=== PATIENT | female | born 1960 | race African-American/Black ===

== ENCOUNTER 2019-03-01 10:41 | Emergency (ER) | payer SELFPAY ==
[~2019-03-01] VITALS: Ht 170.2 cm; Wt 92.1 kg
[2019-03-01 11:10] VITALS: BP 124/61
[2019-03-01] MEDS ORDERED: KETOROLAC TROMETH 60MG/2ML VIAL IM ONE (12:30)
== END 2019-03-01 14:05 | disposition home or self-care (01) ==
LOC: ER 10:45
DX: M25.562 Pain in left knee (principal); M25.561 Pain in right knee; M19.90 Unspecified osteoarthritis, unspecified site; I10 Essential (primary) hypertension
CPT/HCPCS: 73562; 96372; 99283; J1885

== ENCOUNTER 2020-11-08 12:09 | Emergency (ER) | payer SELFPAY ==
[~2020-11-08] VITALS: Ht 170.2 cm; Wt 72.1 kg
[2020-11-08 12:14] VITALS: BP 105/72
[2020-11-08] MEDS ORDERED: KETOROLAC TROMETH 60MG/2ML VIAL IM ONE (13:45)
== END 2020-11-08 14:49 | disposition home or self-care (01) ==
LOC: ER 12:09
DX: S63.92XA Sprain of unspecified part of left wrist and hand, initial encounter (principal); S83.8X1A Sprain of other specified parts of right knee, initial encounter; M17.11 Unilateral primary osteoarthritis, right knee; I10 Essential (primary) hypertension; W19.XXXA Unspecified fall, initial encounter; Y93.89 Activity, other specified; Y92.89 Other specified places as the place of occurrence of the external cause; Y99.8 Other external cause status
CPT/HCPCS: 73130; 73562; 96372; 99284; J1885

== ENCOUNTER 2022-05-16 14:23 | Emergency (ER) | payer BC, OTHER ==
[~2022-05-16] VITALS: Ht 170.2 cm; Wt 80.0 kg
[2022-05-16] MEDS ORDERED: ACETAMINOPHEN 500 MG TAB PO ONE (16:30)
[2022-05-16 16:52] VITALS: BP 117/72
[2022-05-16] MEDS ORDERED: IBUP800T27 PO (17:23)
[2022-05-16] MEDS ORDERED: METH750T22 PO (17:23)
== END 2022-05-16 17:43 | disposition home or self-care (01) ==
LOC: ER 14:23
DX: S16.1XXA Strain of muscle, fascia and tendon at neck level, initial encounter (principal); M50.30 Other cervical disc degeneration, unspecified cervical region; I10 Essential (primary) hypertension; Z79.1 Long term (current) use of non-steroidal anti-inflammatories (NSAID); Z79.899 Other long term (current) drug therapy; V43.62XA Car passenger injured in collision with other type car in traffic accident, initial encounter; Y93.89 Activity, other specified; Y92.410 Unspecified street and highway as the place of occurrence of the external cause; Y99.8 Other external cause status
CPT/HCPCS: 72040

== ENCOUNTER → 2023-11-26 | Emergency (ER) | payer OTHER, MEDICAID ==
[~2023-11-26] MED LIST: IBUP-1456 PO; METH-1182 PO
== END | disposition left against medical advice (07) ==
LOC: ER 13:37
DX: H53.8 Other visual disturbances (principal); Z53.21 Procedure and treatment not carried out due to patient leaving prior to being seen by health care provider

== ENCOUNTER 2024-10-17 16:04 | Inpatient (IN) | payer MEDICAID, OTHER ==
[~2024-10-17] VITALS: Ht 170.2 cm; Wt 99.0 kg
--- NOTE | 2024-10-17 16:24 | ED.PDOC ---
History of Present Illness HPI Comments 64-year-old female came to the ER stating that she has been having bilateral lower extremity edema for the past few days progressively getting worse. She does have a history of hypotension left knee brace for osteoarthritis. She continues to smoke cigarettes. She denies chest pain. She does have shortness a breath upon walking. Blood pressure on arrival was 141/93. She does take Norvasc she does not remember the water pill. Denies any other symptoms. Time Seen by MD: 16:08 Primary Care Provider: MAMMO Reviewed Notes: Nurses Notes, Medications, Allergies Allergies: Coded Allergies: NO KNOWN ALLERGIES (Unverified , 11/08/20) Home Meds Active Scripts Methocarbamol (Methocarbamol) 750 Mg Tab, 750 MG PO QHSP PRN, #20 TAB Prov:ROBYN NICHOLS 05/16/22 Ibuprofen (Ibuprofen) 800 Mg Tab, 1 TAB PO TID, #30 TAB Prov:ROBYN NICHOLS 05/16/22 Information Source: Patient Mode of Arrival: Ambulatory Severity: Moderate Timing: Days Duration: Since onset Past Medical History PAST MEDICAL HISTORY: Arthritis, HTN Surgical History: Denies all surgeries BOTTLE HOP History: No Pertinent BOTTLE HOP History Family History Family History: Reviewed,noncontributory to illness Social History Smoker: Cigarettes Alcohol: Denies ETOH Use Drugs: Denies Drug Use Lives In: Home Constitutional: denies: chills, diaphoresis, fatigue, fever, malaise, sweats, weakness, others EENTM: denies: blurred vision, double vision, ear bleeding, ear discharge, ear drainage, ear pain, ear ringing, eye pain, eye redness, hearing loss, mouth pain, mouth swelling, nasal discharge, nose bleeding, nose congestion, nose pain, photophobia, tearing, throat pain, throat swelling, voice changes, others Respiratory: denies: cough, hemoptysis, orthopnea, SOB at rest, shortness of breath, SOB with excertion, stridor, wheezing, others Cardiovascular: denies: chest pain, dizzy spells, diaphoresis, Dyspnea on exertion, edema, irregular heart beat, left arm pain, lightheadedness, palpitations, PND, syncope, others Gastrointestinal: denies: abdomen distended, abdominal pain, blood streaked bowels, constipated, diarrhea, dysphagia, difficulty swallowing, hematemesis, melena, nausea, poor appetite, poor fluid intake, rectal bleeding, rectal pain, vomiting, others Genitourinary: denies: abnormal vagina bleeding, burning, dyspareunia, dysuria, flank pain, frequency, hematuria, incontinence, pain, , vagina discharge, urgency, others Neurological: denies: dizziness, fainting, headache, left sided numbness, left sided weakness, numbness, paresthesia, pre-existing deficit, right sided numbness, right sided weakness, seizure, speech problems, tingling, tremors, weakness, others Musculoskeletal: reports: joint swelling (Bilateral lower extremity); denies: back pain, gout, joint pain, muscle pain, muscle stiffness, neck pain, others Integumetry: denies: bruises, change in color, change in hair/nails, dryness, laceration, lesions, lumps, rash, wounds, others Allergic/Immunocompromised: denies: Difficulty Healing, Frequent Infections, Hives, Itching, others Hematologic/Lymphatic: denies: anemia, blood clots, easy bleeding, easy bruising, swollen glands, others Endocrine: denies: excessive hunger, excessive sweating, excessive thirst, excessive urination, flushing, intolerance to cold, intolerance to heat, unexplained weight gain, unexplained weight loss, others Psychiatric: denies: anxiety, bipolar disorder, depression, hopeless, panic disorder, schizophrenia, sleepless, suicidal, others Physical Exam General Appearance: Moderate Distress HEENT: Normal ENT Inspection, Pharynx Normal, TMs Normal Neck: Full Range of Motion, Non-Tender, Normal, Normal Inspection Respiratory: Chest Non-Tender, Lungs Clear, No Accessory Muscle Use, No Respiratory Distress, Normal Breath Sounds Cardiovascular: No Edema, No JVD, No Murmur, No Gallop, Normal Peripheral Pulses, Regular Rate/Rhythm Breast Exam: Deferred Gastrointestinal: No Organomegaly, Non Tender, No Pulsatile Mass, Normal Bowel Sounds, Soft Genitalia: Deferred Pelvic: Deferred Rectal: Deferred Extremities: No calf tenderness, Swelling (Bilateral lower extremity) Musculoskeletal : Apperance: Normal Neurologic: Alert, No Motor Deficits, No Sensory Deficits Cerebellar Function: NOT DONE Reflexes: NOT DONE Skin: Normal Color Peripheral Pulses: 3+ Radial (R), 3+ Radial (L) Lymphatic: No Adenopathy Was a procedure done? Was a procedure done?: No Differential Dx Considerations may include: CHF Hypotension X-Ray, Labs, Meds, VS Patient alert. Complaining of bilateral lower extremity swelling. Vitals stable. Answering all questions. Has a knee brace on her left knee. Possibly hypertensive cardiomyopathy pain She is taking a water pill. Echocardiogram. Cardiology consultation. Stress test. Explained to the patient. Continue monitoring. Time of 1ST Reevaluation: 16:23 Reevaluation 1ST: Unchanged Patient Education/Counseling: Diagnosis, Treatment, Prognosis Family Education/Counseling: No Family Present SEPSIS Sepsis Screen Physician Orders Troponin-I Hs (10/17/24 16:24) Complete Blood Count (10/17/24 16:24) Chest Portable (10/17/24 16:24) Urinalysis (10/17/24 16:24) Basic Metabolic Panel (10/17/24 16:24) Electrocardigram (10/17/24 16:24) Furosemide Injection (Lasix Injection) (10/17/24 16:30) Departure 1 Departure Time of Disposition: 16:23 Impression: Primary Impression: CHF (congestive heart failure) Qualified Codes: I50.43 - Acute on chronic combined systolic (congestive) and diastolic (congestive) heart failure Additional Impression: HTN (hypertension) Qualified Codes: I10 - Essential (primary) hypertension Disposition: ADMITTED INPATIENT Admit to: Med Surg Condition: Guarded Critical Care Note Critical Care Time?: No Stability Stability form required: No Heart Score Heart Score: Heart Score Response (Comments) Value History Slightly Suspicious 0 EKG Normal 0 Age >65 2 Risk Factors >3 or Hx ASHD 2 Troponin Normal limit 0 Total 4 MI VELÁSQUEZ MD Oct 17, 2024 16:24
[2024-10-17] MEDS: FUROSEMIDE 20 MG/2 ML VIAL IV ONE (17:00)
[2024-10-17 17:01] LABS: Hematocrit 41.2 % (36.0-46.0); Hemoglobin 13.7 g/dL (12.2-16.2); Mean Corpuscular Hemoglobin 29.2 pg (28.0-32.0); Mean Corpuscular Volume 87.7 fL (80.0-100.0); Nucleated Red Blood Cells % 0.1 %
[2024-10-17 17:13] LABS: Potassium 3.6 mmol/L (3.5-5.1)
[2024-10-17 17:14] LABS: Anion Gap 7 (5-15); Calcium 9.7 mg/dL (8.7-10.4); Carbon Dioxide 31 mmol/L (20-31)
[2024-10-17 17:19] LABS: BUN/Creatinine Ratio 12.2 (10.0-20.0); Blood Urea Nitrogen 12 mg/dL (9-23); Glucose 103 mg/dL (74-106)
[2024-10-17 17:20] LABS: Chloride 108 mmol/L (98-107); Sodium 146 mmol/L (136-145)
--- NOTE | 2024-10-17 17:37 | DVH ---
CHEST RADIOGRAPH Indication: sob Technique: Single frontal view of the chest was obtained COMPARISON: None FINDINGS: Lines and Tubes: None Lungs: Mild increased interstitial prominence Pleura: No effusion. No pneumothorax. Cardiomediastinal contours: Unremarkable Bones: Unremarkable IMPRESSION: Viral pneumonia or mild pulmonary vascular congestion
[2024-10-17 17:44] LABS: Urine Protein, UAD Negative (Negative)
[2024-10-17] MEDS ORDERED: MORPHINE SULFATE INJ 2 MG/ml SYRG IV PRN (23:15)
[2024-10-17] MEDS ORDERED: NITROGLYCERIN 0.4 MG SL TAB SL PRN (23:15)
--- NOTE | 2024-10-17 23:15 | DVHHP2 ---
History of Present Illness History of Present Illness This is a 64-year-old female with past medical history of arthritis HTN, sciatica, bulging disc, CTS presents to ED with complain of bilateral leg swelling for 3 days which is worsen gradually associated with bilateral localized throbbing pain, intensity 4-5/10, little relief with elevation of bilateral leg and and aggravated on hanging. Patient home medication amlodipine 5 mg which she took for a long time. Currently patient denies any fever, chest pain, shortness of breath, headache, abdominal pain, dysuria. No history of recent sick contacts or trauma. Patient history of seizures in seen by neurologist and last visit last month. Past medical history: Arthritis, HTN, sciatica, dex bulging, CTS. Past Surgical history: -personal and family history: Smoke, occasional alcohol, denies any substance abuse. Lives with Medicine: Nitroglycerin 0.4 mg sublingually as needed, triamterene-HCTZ 75-50 mg, amlodipine 5 mg, Briviact 50 mg, atorvastatin 10 mg, lansoprazole 30 minute, Eslicarbazepine 50 mg, 100 mg, KCL tablet, etodolac 40 mg. Allergy: Unknown etiology PCP unknown Review of Systems Constitutional: No: Fever, Chills, Sweats, Weakness, Malaise, Other Eyes: No: Pain, Vision change, Conjunctivae inflammation, Eyelid inflammation, Other, Redness Respiratory: No: Cough, Dry, Shortness of breath, SOB with excertion, Wheezing, Hemoptysis, Pleuritic Pain, Sputum, Wheezing, Other Cardiovascular: Edema (Bilateral leg edema 3+); No: Chest Pain, Palpitations, Orthopnea, Paroxysmal Noc. Dyspnea, Lt Headedness, Other Gastrointestinal: No: Nausea, Vomiting, Abdominal Pain, Diarrhea, Constipation, Melena, Hematochezia, Other Genitourinary: No Dysuria, No Frequency, No Incontinence, No Hematuria, No Retention, No Other Musculoskeletal: No: other, neck pain, shoulder pain, arm pain, back pain, hand pain, leg pain, foot pain Neurological: No: Weakness, Numbness, Incoordination, Change in speech, Confusion, Seizures, Other Allergies: Coded Allergies: NO KNOWN ALLERGIES (Unverified , 11/08/20) Exam Vital Signs Vital Signs Date Time Temp Pulse Resp B/P (MAP) Pulse Ox O2 Delivery O2 Flow Rate FiO2 10/17/24 22:19 98.1 81 17 157/76 (103) 97 98.1 10/17/24 16:49 Room Air* 0 21 General Appearance: Alert, Oriented X3, Cooperative HEENT: PERRLA, EOMI Respiratory: Clear to auscultation, Normal air movement Cardiovascular: Regular rate, Normal S1, Normal S2 Abdominal: Normal bowel sounds, Soft, No tenderness, No hepatospenomegaly Extremities: No clubbing, No cyanosis, Other (Bilateral leg edema, bilateral knee braces present) Skin: No rashes, No breakdown Neuro: Normal gait, Normal speech, Strength at 5/5 X4 ext, Normal tone Labs/Xrays Labs Test 10/17/24 17:38 10/17/24 16:45 Range/Units Urine Color Light-yellow Yellow Urine Clarity Clear Clear Urine pH 6.0 5.0-9.0 Urine Specific [place] 1.012 1.001-1.035 Urine Protein Negative Negative Urine Ketones Negative Negative Urine Blood Negative Negative /uL Urine Nitrite Negative Negative Urine Bilirubin Negative Negative Urine Urobilinogen Normal Negative mg/dL Urine Leukocyte Esterase Negative Negative /uL Urine RBC 1 0 - 4 /hpf Urine Microscopic WBC 1 0-5 /HPF Urine Squamous Epithelial Cells None seen <5 /hpf Urine Bacteria Few H None Seen /hpf Urine Glucose Normal Normal mg/dL White Blood Count 5.6 4.4-10.8 10^3/uL Red Blood Count 4.70 4.0-5.20 10^6/uL Hemoglobin 13.7 12.2-16.2 g/dL Hematocrit 41.2 36.0-46.0 % Mean Corpuscular Volume 87.7 80.0-100.0 fL Mean Corpuscular Hemoglobin 29.2 28.0-32.0 pg Mean Corpuscular Hemoglobin Concent 33.3 32.0-36.0 g/dL Red Cell Distribution Width 14.2 11.8-14.3 % Platelet Count 165 140-450 10^3/uL Mean Platelet Volume 9.1 6.9-10.8 fL Neutrophils (%) (Auto) 48.0 37.0-80.0 % Lymphocytes (%) (Auto) 35.3 10.0-50.0 % Monocytes (%) (Auto) 11.2 0.0-12.0 % Eosinophils (%) (Auto) 4.8 0.0-7.0 % Basophils (%) (Auto) 0.7 0.0-2.0 % Neutrophils # (Auto) 2.7 1.6-8.6 10 ^3/uL Lymphocytes # (Auto) 2.0 0.4-5.4 10 ^3/uL Monocytes # (Auto) 0.6 0-1.3 10 ^3/uL Eosinophils # (Auto) 0.3 0-0.8 10 ^3/uL Basophils # (Auto) 0 0-0.2 10 ^3/uL Nucleated Red Blood Cells 0.1 % Sodium Level 146 H 136-145 mmol/L Potassium Level 3.6 3.5-5.1 mmol/L Chloride Level 108 H 98-107 mmol/L Carbon Dioxide Level 31 20-31 mmol/L Anion Gap 7 5-15 Blood Urea Nitrogen 12 9-23 mg/dL Creatinine 0.98 0.550-1.02 mg/dL Glomerular Filtration Rate Calc 64 >90 mL/min BUN/Creatinine Ratio 12.2 10.0-20.0 Serum Glucose 103 74-106 mg/dL Calcium Level 9.7 8.7-10.4 mg/dL Troponin I High Sensitivity 4 </=34 ng/L Assessment/Plan Assessment/Plan # Bilateral leg edema secondary to acute on chronic systolic heart failure -Patient came with bilateral leg edema -Home medication- hydrochlorothiazide 75-50 mg, AMLODIPINE 5 MG P.O. DAILY -Patient received furosemide IV in ED -CXR-no cardiopulmonary abnormality -Troponin 6 -bilateral lower extremity Venous duplex: No evidence of right or left femoropopliteal venous thrombosis. -Furosemide 40 mg IV given state and continue twice a day -Start losartan 25 mg q.d. and to hold amlodipine for now. -Hydrochlorothiazide 50 mg p.o. daily -TSH, HbA1c, lipid profile, BNP we will follow -UDS, Mg++ level follow -Echo ,EKG ordered - # Essential hypertension -Home medication amlodipine 5 mg -Start losartan 25 mg daily, hold amlodipine for now due to bilateral leg edema. -Monitor blood pressure -DASH diet # Seizure disorder -Continue eslicarbazepine 50 mg daily # Hyperlipidemia -Continue atorvastatin 40 mg daily -Order lipid profile # GERD -Continue pantoprazole 40 mg daily # Arthritis -Patient use bilateral knee braces -Continue gabapentin 300 mg t.i.d. # MORBID OBESITY BMI 34.1 Lifestyle modification Diet cardiac GI prophylaxis: Pantoprazole 40 mg po daily DVT prophylaxis: Lovenox 30 mg SCD daily Goals of care discussions, more than 24 minutes spent. Full code status. Case discussed with Dr. White Plan discussed with: Patient, Other (Nurse) My Orders Orders - KARLO LAI Procedure Category Date Status Time Admit ADMIT 10/17/24 Verified 23:10 Nitroglycerin [facility] 10/17/24 Verified Sublingual (Ntrostat 23:15 Morphine Sulfate [facility] 10/17/24 Verified Injection 23:15 Oxygen By Nasal RT 10/17/24 Verified Cannula 23:10 Stat Ekg For Chest [facility] 10/17/24 Verified Pain 23:10 Notify Md Of Changes [facility] 10/17/24 Verified From Base 23:10 Stabilizer Operator For [facility] 10/17/24 Verified 24 Hours 23:10 Emergency Dysrhythmia [facility] 10/17/24 Verified Protocol 23:10 Rhythm Strips Once [facility] 10/17/24 Verified Every Shift 23:10 Date of Service: Oct 17, 2024 Billing Provider: MATTHEW WHITE MD Common Visit Codes: [id number] INP/OBS CARE (HIGH) Secondary Visit Codes: [id number] CARE PLAN 30 MINUTES KARLO LAI Oct 17, 2024 23:15
[2024-10-18] VITALS (8 sets, daily range): BP systolic 108–126; BP diastolic 67–79; PULSE 61–96; RESP 14–18; TEMP 96.4–98.4; O2SAT 97–99
[2024-10-18] MEDS ORDERED: ATOR10TA PO (00:25)
[2024-10-18] MEDS ORDERED: ETOD1TAB60 PO (00:25)
[2024-10-18] MEDS ORDERED: AMLO1TAB22 PO (00:25)
[2024-10-18] MEDS ORDERED: TRIA37.586 PO (00:25)
[2024-10-18] MEDS ORDERED: POTA-36 PO (00:25)
[2024-10-18] MEDS ORDERED: GABA-1250 PO (00:25)
[2024-10-18] MEDS ORDERED: BRIV1TAB4 PO (00:25)
[2024-10-18] MEDS ORDERED: ESLI1TAB4 PO (00:25)
[2024-10-18] MEDS ORDERED: LANS30CA57 PO (00:25)
--- NOTE | 2024-10-18 00:28 | DVH ---
Bilateral lower extremity venous duplex Clinical History: B/L LOWER EXT SWELLING Comparison: None Technique: Duplex Doppler evaluation of the deep venous systems of both lower extremities from the common femora l veins to the popliteal veins including color Doppler and spectral/pulsed waveform analysis was perf ormed. Findings: RIGHT SIDE: The common femoral vein demonstrates appropriate compressibility and waveform variability. There is compressibility/patency of the great saphenous vein at the proximal thigh. The femoral vein demonstrates appropriate compressibility and waveform variability. The deep femoral vein demonstrates appropriate compressibility and waveform variability. The popliteal vein demonstrates appropriate compressibility and waveform variability. There is normal compressibility at the tibioperoneal trunk. LEFT SIDE: The common femoral vein demonstrates appropriate compressibility and waveform variability. There is compressibility/patency of the great saphenous vein at the proximal thigh. The femoral vein demonstrates appropriate compressibility and waveform variability. The deep femoral vein demonstrates appropriate compressibility and waveform variability. The popliteal vein demonstrates appropriate compressibility and waveform variability. There is normal compressibility at the tibioperoneal trunk. Impression: No evidence of right or left femoropopliteal venous thrombosis.
[2024-10-18] MEDS: ENOXAPARIN SOD 30 MG/0.3 ML SYRINGE SC ONE (01:28)
[2024-10-18] MEDS: FUROSEMIDE 40 MG/4 ML VIAL IV ONE (01:28)
[2024-10-18] MEDS: LOSARTAN POTASSIUM 25 MG TAB PO ONE (01:42)
[2024-10-18] MEDS: POTASSIUM CHL 20 Meq TABLET PO ONE (01:43)
[2024-10-18] MEDS: ACETAMINOPHEN 325 MG TAB PO PRN (02:15)
[2024-10-18] MEDS: GABAPENTIN 300 MG CAP PO SCH (06:00)
[2024-10-18] MEDS: PANTOPRAZOLE 40 MG TAB PO SCH (06:00)
[2024-10-18] MEDS: FUROSEMIDE 40 MG/4 ML VIAL IV SCH (06:00)
[2024-10-18] MEDS: POTASSIUM CHL 20 Meq TABLET PO SCH (10:40)
[2024-10-18] MEDS: LOSARTAN POTASSIUM 25 MG TAB PO SCH (10:40)
[2024-10-18] MEDS: BRIVIACT (BRIVARACETAM) 50MG TABLET PO SCH (10:41)
[2024-10-18] MEDS: hydroCHLOROthiazide 25 MG TAB PO SCH (10:41)
[2024-10-18] MEDS: APTIOM 800 MG PO SCH (10:41)
[2024-10-18 11:08] LABS: Alanine Aminotransferase 18 U/L (7-40); Albumin 4.3 g/dL (3.2-4.8); Alkaline Phosphatase 90 U/L (46-116); Anion Gap 9 (5-15); BUN/Creatinine Ratio 15.7 (10.0-20.0); Blood Urea Nitrogen 13 mg/dL (9-23); Calcium 9.8 mg/dL (8.7-10.4); Carbon Dioxide 28 mmol/L (20-31); Chloride 107 mmol/L (98-107); Glucose 100 mg/dL (74-106); Potassium 3.9 mmol/L (3.5-5.1); Sodium 144 mmol/L (136-145); Total Protein 6.7 g/dL (5.7-8.2)
[2024-10-18 11:09] LABS: Bilirubin, Total 0.3 mg/dL (0.2-1.0); Cholesterol 168 mg/dL (< 200); HDL Cholesterol 53 mg/dL (40-59); Triglycerides 178 mg/dL (< 150)
--- NOTE | 2024-10-18 12:56 | DVHSR ---
APPROVED REPORT EXAM: Two-dimensional and M-mode echocardiogram with Doppler and color Doppler. Blood Pressure: 123/79 mmHg INDICATION CHF RISK FACTORS Height: 67, Weight: 218 DIMENSIONS LVDd4.2 (3.8-5.7cm)LA (2D)3.9 (1.9-4.0cm)Aortic Root3.1 (2.0-3.7cm) LVDs2.6 (2.5-4.0cm)LA (MM) (1.9-4.0cm)Aortic Cusp Exc1.6 (1.5-2.0cm) EF (%) 70.0 (55-70%)Rt. Atrium (1.9-4.0cm)Asc. Aorta cm IVSd1.2 (0.7-1.1cm)RV (D) (1.8-2.4cm) PWd1.4 (0.7-1.1cm) Mitral Valve MitralMitral Stenosis E wave0.76m/sMV Mean GR.mmHg A wave0.93m/sMV Peak GR.mmHg E/A ratio0.82D MVAcm2 DECEL [id number] 1/2 [id number] IVRTmsDop MVA4.12cm2 Aortic Valve Aortic ValveAortic Stenosis V10.85m/Fazal Mean GR.4mmHg V21.44m/Fazal Peak GR.8mmHg LVOT Diameter2.1 (1.8-2.4cm)Doppler AVA2.04cm2 Pulmonic Valve V20.76m/s Tricuspid Valve TR Velocity2.80m/s [id number] Conclusion lvef 65% grade 1 diastolic dysfunction normal rv function mild tricuspid regurg no severe valve abnormalities noted
--- NOTE | 2024-10-18 14:39 | DVHPNRES ---
Progress Note Date Seen: Oct 18, 2024 Resident Creating Document: WIN VARGAS RESIDENT Medical Necessity Reason Pt with a Central, PICC or Fol: No Subjective Review of Systems This is a 64-year-old female with past medical history of arthritis HTN, sciatica, bulging disc, CTS presents to ED with complain of bilateral leg swelling for 7 days which is worsen gradually since last 3 days associated with bilateral localized throbbing pain, intensity 4-5/10, little relief with elevation of bilateral leg and and aggravated on hanging. Patient home medication amlodipine 5 mg which she took for a long time. Currently patient denies any fever, chest pain, shortness of breath, headache, abdominal pain, dysuria. No history of recent sick contacts or trauma. Patient history of seizures in seen by neurologist and last visit last month. Past medical history: Arthritis, HTN, sciatica, dex bulging, CTS. Past Surgical history: -personal and family history: Smoke, occasional alcohol, denies any substance abuse. Lives with Medicine: Nitroglycerin 0.4 mg sublingually as needed, triamterene-HCTZ 75-50 mg, amlodipine 5 mg, Briviact 50 mg, atorvastatin 10 mg, lansoprazole 30 minute, Eslicarbazepine 50 mg, 100 mg, KCL tablet, etodolac 40 mg. Allergy: Unknown etiology PCP unknown 10/18 interval events: This morning the patient said the bilateral leg pain improved, the patient denies any chest pain, shortness of breath,fever,nausea,vomiting or any other complaint. The patient was seen and examined at bedside no new complaints reported. Rest of ROS is negative Patient reports: Feels better Objective vital signs Vital Sign Date Time Temp Pulse Resp B/P (MAP) Pulse Ox O2 Delivery O2 Flow Rate FiO2 10/18/24 12:42 97.8 61 14 126/78 (94) 99 97.8 10/18/24 08:20 Room Air* 0 21 Total Intake and Output 10/17/24 10/17/24 10/18/24 15:00 23:00 07:00 Intake Total 200 ml Balance 200 ml medications Current Medications Medications Dose Ordered Sig/Julianne Route Start Time Stop Time Status Last Admin Dose Admin Nitroglycerin 0.4 mg Q5MINP PRN SL 10/17/24 23:15 Morphine Sulfate 2 mg Q30M PRN IV 10/17/24 23:15 Potassium Chloride 20 meq DAILY PO 10/18/24 10:00 10/18/24 10:40 20 MEQ Furosemide 40 mg BIDD IV 10/18/24 06:00 Losartan Potassium 25 mg DAILY PO 10/18/24 10:00 10/18/24 10:40 25 MG Atorvastatin Calcium 40 mg HS PO 10/18/24 22:00 Pantoprazole Sodium 40 mg DAILY@0600 PO 10/18/24 06:00 Hold Enoxaparin Sodium 30 mg Q24H SC 10/18/24 21:00 Acetaminophen 650 mg Q6HP PRN PO 10/18/24 02:00 10/18/24 02:15 650 MG Gabapentin 300 mg TID PO 10/18/24 06:00 Patient Own Medication 1 BID PO 10/18/24 10:00 10/18/24 10:41 1 Patient Own Medication 1 QAM PO 10/18/24 07:00 10/18/24 10:41 1 Hydrochlorothiazide 12.5 mg DAILY PO 10/19/24 10:00 Patient Own Medication 1 QAM PO 10/18/24 10:00 Examination Pt is lying on bed General Appearance: Alert, Oriented X3, Cooperative, Mild distress HEENT: Atraumatic, Mucous membranes moist/pink Respiratory: Clear to auscultation, Normal air movement, No added sounds Cardiovascular: Regular rate, Normal S1, Normal S2, No murmurs Abdominal/ : Active bowel sounds, Soft, no distention, no tenderness Extremities: Bilateral leg edema, brace present, Normal pulses, No tenderness/swelling Skin: No Significant rash, except past surgical scars Neuro: Normal speech, sensorimotor deficits none Psych/Mental Status: Mental status NL, Mood NL Nurse was there as receptionist telephone operator during examination laboratory and microbiology Laboratory Tests 10/18/24 10:30 10/17/24 16:45 Test 10/18/24 10:30 Range/Units Serum Glucose 100 74-106 mg/dL Labs and/or images reviewed: Labs reviewed by me, Image(s) reviewed by me Problem List/Assessment/Plan Problem List/Assessment/Plan ? Acute on chronic diastolic heart failure: Bilateral lower extremity edema Hypertension uncontrolled-improved Echo revealed lvef 65% and grade 1 diastolic dysfunction CXR mild vascular congestion, increased interstitial BNP normal Continue IV Lasix DVT ruled out by U/S Started Amlodipine discontinued because of bilateral pedal edema. Started losartan 25 mg Hydrochlorothiazide 12.5 mg History of Seizure disorder continue SL carbamazepine 50 mg daily Next lipidemia continue atorvastatin 40 mg daily lipid profile or GERD continue pantoprazole 40 mg daily Arthritis patient use bilateral knee braces Continue gabapentin 300 mg t.i.d. Dyslipidemia Lipitor 40 mg Prediabetes with HbA1c 6 Dietary genetic counselor GI prophylaxis: . Pantoprazole DVT prophylaxis: Lovenox Diet: Cardiac Goals of care discussed with the patient for more than 27 minutes: Full code status Case discussed with Dr. Teixeira, patient and RN Plan discussed with: Patient, Daughter (RN), Other (RN) My Orders My Orders Orders - WIN VARGAS RESIDENT Procedure Category Date Status Time Patients Own PHA 10/18/24 In Process Medication 10:00 Patients Own PHA 10/18/24 In Process Medication 07:00 Dietary Evaluation Review Recommendations by RD: Dietary education by RD Date of Service: Oct 18, 2024 Billing Provider: KERWIN TEIXEIRA MD Common Visit Codes: [id number] INP/OBS CARE(HIGH) WIN VARGAS RESIDENT Oct 18, 2024 14:39 SHEKHAR GOLDSTEIN RESIDENT Oct 18, 2024 15:09 KERWIN TEIXEIRA MD Oct 18, 2024 21:49
[2024-10-18] MEDS ORDERED: METHOCARBAMOL 500 MG TAB PO PRN (18:00)
[2024-10-18] MEDS: ETODOLAC 400 MG PO PRN (18:45)
[2024-10-18] MEDS: ENOXAPARIN SOD 30 MG/0.3 ML SYRINGE SC SCH (21:00)
[2024-10-18] MEDS: ATORVASTATIN 20 MG TAB PO SCH (21:14)
[2024-10-19 01:00] VITALS: BP 101/64; PULSE 67; RESP 18; TEMP 98.1; O2SAT 94
[2024-10-19 05:00] VITALS: BP 106/57; PULSE 73; RESP 18; TEMP 98; O2SAT 99
[2024-10-19] MEDS: PANTOPRAZOLE 40 MG TAB PO SCH (06:21)
[2024-10-19 08:00] VITALS: PULSE 117
[2024-10-19 08:18] VITALS: PULSE 73; RESP 18; O2SAT 99
[2024-10-19] MEDS: hydroCHLOROthiazide 25 MG TAB PO SCH (09:53)
[2024-10-19 12:37] VITALS: BP 118/78; PULSE 105; RESP 16; TEMP 98.3; O2SAT 96
[2024-10-19] MEDS ORDERED: HYDR25TA5 PO (14:57)
[2024-10-19] MEDS ORDERED: LOS25T PO (14:57)
--- NOTE | 2024-10-19 15:01 | DVHDSRES ---
Discharge Summary Date of Admission Resident Creating Document: WIN VARGAS RESIDENT Oct 17, 2024 at 23:10 Date of Discharge: Oct 19, 2024 Admitting Diagnosis Acute on chronic diastolic heart failure Bilateral lower extremity edema Hypertension uncontrolled-improved History of seizure disorder GERD Arthritis Dyslipidemia Prediabetes Labs/Diagnostic Data: Laboratory Results Test 10/18/24 10:30 10/18/24 06:18 10/17/24 17:38 10/17/24 16:45 Sodium Level 144 mmol/L (136-145) Potassium Level 3.9 mmol/L (3.5-5.1) Chloride Level 107 mmol/L (98-107) Carbon Dioxide Level 28 mmol/L (20-31) Anion Gap 9 (5-15) Blood Urea Nitrogen 13 mg/dL (9-23) Creatinine 0.83 mg/dL (0.550-1.02) Glomerular Filtration Rate Calc 78 mL/min (>90) BUN/Creatinine Ratio 15.7 (10.0-20.0) Serum Glucose 100 mg/dL (74-106) Calcium Level 9.8 mg/dL (8.7-10.4) Total Bilirubin 0.3 mg/dL (0.2-1.0) Aspartate Amino Transferase (AST) 26 U/L (13-40) Alanine Aminotransferase (ALT) 18 U/L (7-40) Alkaline Phosphatase 90 U/L (46-116) Total Protein 6.7 g/dL (5.7-8.2) Albumin 4.3 g/dL (3.2-4.8) Triglycerides Level 178 mg/dL (< 150) Cholesterol Level 168 mg/dL (< 200) LDL Cholesterol 97 mg/dL (< 100) HDL Cholesterol 53 mg/dL (40-59) Hemoglobin A1c 6.0 % A1C (<5.7) Thyroid Stimulating Hormone (TSH) 1.03 uIU/mL (0.55-4.78) Urine Color Light-yellow (Yellow) Urine Clarity Clear (Clear) Urine pH 6.0 (5.0-9.0) Urine Specific [place] 1.012 (1.001-1.035) Urine Protein Negative (Negative) Urine Ketones Negative (Negative) Urine Blood Negative /uL (Negative) Urine Nitrite Negative (Negative) Urine Bilirubin Negative (Negative) Urine Urobilinogen Normal mg/dL (Negative) Urine Leukocyte Esterase Negative /uL (Negative) Urine RBC 1 /hpf (0 - 4) Urine Microscopic WBC 1 /HPF (0-5) Urine Squamous Epithelial Cells None seen /hpf (<5) Urine Bacteria Few /hpf (None Seen) Urine Glucose Normal mg/dL (Normal) White Blood Count 5.6 10^3/uL (4.4-10.8) Red Blood Count 4.70 10^6/uL (4.0-5.20) Hemoglobin 13.7 g/dL (12.2-16.2) Hematocrit 41.2 % (36.0-46.0) Mean Corpuscular Volume 87.7 fL (80.0-100.0) Mean Corpuscular Hemoglobin 29.2 pg (28.0-32.0) Mean Corpuscular Hemoglobin Concent 33.3 g/dL (32.0-36.0) Red Cell Distribution Width 14.2 % (11.8-14.3) Platelet Count 165 10^3/uL (140-450) Mean Platelet Volume 9.1 fL (6.9-10.8) Neutrophils (%) (Auto) 48.0 % (37.0-80.0) Lymphocytes (%) (Auto) 35.3 % (10.0-50.0) Monocytes (%) (Auto) 11.2 % (0.0-12.0) Eosinophils (%) (Auto) 4.8 % (0.0-7.0) Basophils (%) (Auto) 0.7 % (0.0-2.0) Neutrophils # (Auto) 2.7 10 ^3/uL (1.6-8.6) Lymphocytes # (Auto) 2.0 10 ^3/uL (0.4-5.4) Monocytes # (Auto) 0.6 10 ^3/uL (0-1.3) Eosinophils # (Auto) 0.3 10 ^3/uL (0-0.8) Basophils # (Auto) 0 10 ^3/uL (0-0.2) Nucleated Red Blood Cells 0.1 % Magnesium Level 2.0 mg/dL (1.6-2.6) Troponin I High Sensitivity 4 ng/L (</=34) B-Type Natriuretic Peptide 15.53 pg/mL (0-100) Other Laboratory Tests 10/18/24 10:30 10/17/24 16:45 Brief Hx & Hospital Course: This 64-year-old female with past medical history of arthritis, hypertension, ascites, bulging disc, CT present to the ED with complaint of bilateral leg swelling for 7 days which worsened bilaterally since last 3 days with throbbing pain, intensity 5/10. Amlodipine was discontinued. Patient required hospital admission for further evaluation management of bilateral patient found to diastolic CHF. Echo revealed LV ejection fraction 50- 65% and grade 1 diastolic dysfunction. Chest x-ray revealed mild vascular congestion increased interstitial opacities. BNP normal. We continued IV Lasix. DVT was ruled out by ultrasound. The patient had uncontrolled hypertension. Losartan 25 mg and hydrochlorothiazide 12.5 mg was initiated and continued. Patient continued sublingual carbamazepine 50 mg daily because of her previous history of seizure disorder. GERD treated with pantoprazole 40 mg daily. Lipid profile showed triglyceride high. Lipitor 40 mg was continued. Hemoglobin A1c 6, prediabetes, patient was counseled on healthy lifestyle modification. Patient was advised to follow-up with the PCP in 1 week. The discharge plan was discussed with the patient and daughter, they understood the plan and agreed. Pt is lying on bed General Appearance: Alert, Oriented X3, Cooperative, Mild distress HEENT: Atraumatic, Mucous membranes moist/pink Respiratory: Clear to auscultation, Normal air movement, No added sounds Cardiovascular: Regular rate, Normal S1, Normal S2, No murmurs Abdominal/ : Active bowel sounds, Soft, no distention, no tenderness Extremities: Bilateral leg edema, brace present, Normal pulses, No tenderness/swelling Skin: No Significant rash, except past surgical scars Neuro: Normal speech, sensorimotor deficits none Psych/Mental Status: Mental status NL, Mood NL Nurse was there as website developer during examination Operations or Procedures Bilateral lower extremity venous duplex Impression: No evidence of right or left femoropopliteal venous thrombosis. --- CHEST RADIOGRAPH IMPRESSION: Viral pneumonia or mild pulmonary vascular congestion ---ECHO Conclusion lvef 65% grade 1 diastolic dysfunction normal rv function mild tricuspid regurg no severe valve abnormalities noted Condition at Discharge: Stable Final Diagnosis/Problems List Acute on chronic diastolic CHF Bilateral lower extremity edema Hypertension Seizure disorder GERD Arthritis Pre diabetes Dyslipidemia GERD arthritis Dyslipidemia Prediabetes Discharge Disposition: Home Discharge Instruct/Medications Diet: Consistent carbohydrate, Cardiac 2g Na,low cholest Activity: No Restrictions, As Tolerated Scheduled Atorvastatin Calcium (Lipitor), 1 TAB PO QPM, (Reported) Brivaracetam (Briviact), 50 MG PO DAILY, (Reported) Eslicarbazepine Acetate (Aptiom), 800 MG PO DAILY, (Reported) Gabapentin (Gabapentin), 300 MG PO TID, (Reported) Hctz (Hydrochlorothiazide), 12.5 MG PO DAILY Hydrochlorothiazide W/Triamter (Triamterene/Hydrochloroth), 1 CAP PO DAILY, (Reported) Ibuprofen (Ibuprofen), 1 TAB PO TID Lansoprazole (Lansoprazole), 1 CAP PO DAILY, (Reported) Losartan Potassium (Losartan Potassium), 25 MG PO DAILY Potassium Chloride (Potassium Chloride Cr), 16 MEQ PO DAILY, (Reported) Scheduled PRN Etodolac (Lodine), 400 MG PO BID PRN for PAIN SCALE 1 THRU 6, (Reported) Methocarbamol (Methocarbamol), 750 MG PO QHSP PRN Discontinued Medications Amlodipine Besylate (Amlodipine Besylate), 5 MG PO DAILY, (Reported) Discharge Statement: "Patient was advised to return to the ER or call 911 if any headaches, dizziness, shortness of breath, chest pain, abdominal pain, bleeding, fevers, or worsening of medical condition. Patient was counseled about treatment plan, medications, possible side effects, patientverbalized understanding. All questions were answered to the best of my ability. This discharge took greater then 30 minutes in planning, reviewing documentation, counseling the patient, and discussing with other team members." ASSESSMENT ASSESSMENT Assessment Acute on chronic diastolic heart failure Bilateral lower extremity edema Hypertension Seizure disorder GERD 9 arthritis Dyslipidemia Prediabetes Date of Service: Oct 20, 2024 Billing Provider: KERWIN SCOTT MD Common Visit Codes: 07180-HQG/OBS DISCH DAY >30min WIN VARGAS RESIDENT Oct 19, 2024 15:01 SHEKHAR GOLDSTEIN RESIDENT Oct 19, 2024 17:12 KERWIN SCOTT MD Oct 21, 2024 08:15
[2024-10-19 16:30] VITALS: BP 118/74; PULSE 61; RESP 16; TEMP 98.1; O2SAT 94
== END 2024-10-19 17:15 | disposition home or self-care (01) | DRG 291 ==
LOC: ER 16:04 → OVERFLOW 23:10 → TELE-WESTW 23:16
PROVIDERS: ADMIT Internal Medicine; ATTEND Internal Medicine
DX: I11.0 Hypertensive heart disease with heart failure (principal); I50.33 Acute on chronic diastolic (congestive) heart failure; K21.9 Gastro-esophageal reflux disease without esophagitis; G40.909 Epilepsy, unspecified, not intractable, without status epilepticus; E66.01 Morbid (severe) obesity due to excess calories; F17.210 Nicotine dependence, cigarettes, uncomplicated; E78.5 Hyperlipidemia, unspecified; R73.03 Prediabetes; M19.09 Primary osteoarthritis, other specified site; Z79.1 Long term (current) use of non-steroidal anti-inflammatories (NSAID); Z79.899 Other long term (current) drug therapy; Z68.34 Body mass index [BMI] 34.0-34.9, adult
CPT/HCPCS: 36415; 71045; 80048; 80053; 80061; 81001; 83036; 83735; 83880; 84443; 84484; 85025; 93306; 93970; 96374; G0378

== ENCOUNTER 2025-01-22 20:19 | Emergency (ER) | payer OTHER ==
[~2025-01-22] VITALS: Ht 170.2 cm; Wt 93.0 kg
[~2025-01-22 20:19] MED LIST changes: +ATOR10TA PO; +BRIV1TAB4 PO; +ESLI1TAB4 PO; +ETOD1TAB60 PO; +GABA-1250 PO; +HYDR25TA5 PO; +LANS30CA57 PO; +LOS25T PO; +POTA-36 PO; +TRIA37.586 PO
[2025-01-22 21:30] LABS: Hematocrit 41.6 % (36.0-46.0); Hemoglobin 14.2 g/dL (12.2-16.2); Mean Corpuscular Hemoglobin 29.7 pg (28.0-32.0); Mean Corpuscular Volume 87.0 fL (80.0-100.0); Nucleated Red Blood Cells % 0.1 %
--- NOTE | 2025-01-22 21:30 | DVH ---
CHEST RADIOGRAPH Indication: Shortness of breath Technique: Single frontal view of the chest was obtained COMPARISON: XY CHEST PORTABLE on DOS: 10/17/24 FINDINGS: Lines and Tubes: None Lungs: Clear Pleura: No effusion. No pneumothorax. Cardiomediastinal contours: Unremarkable Bones: Unremarkable IMPRESSION: 1. No acute disease.
[2025-01-22 21:45] LABS: Alanine Aminotransferase 16 U/L (7-40); Albumin 4.5 g/dL (3.2-4.8); Alkaline Phosphatase 98 U/L (46-116); Anion Gap 9 (5-15); BUN/Creatinine Ratio 15.5 (10.0-20.0); Blood Urea Nitrogen 13 mg/dL (9-23); Calcium 9.4 mg/dL (8.7-10.4); Carbon Dioxide 29 mmol/L (20-31); Chloride 105 mmol/L (98-107); Glucose 100 mg/dL (74-106); Potassium 3.7 mmol/L (3.5-5.1); Sodium 143 mmol/L (136-145); Total Protein 7.6 g/dL (5.7-8.2)
[2025-01-22 21:50] LABS: Bilirubin, Total 0.2 mg/dL (0.2-1.0)
--- NOTE | 2025-01-23 00:34 | ED.PDOC ---
HPI Comments Patient is a pleasant but morbidly obese 64-year-old female with a history of COPD arrives with the ED today via EMS due to complaints of chest pain and shortness a breath for proximally 12 hours prior to arrival. Patient states the symptoms came on him for fairly consistent. EMS arrived and stated the patient was satting at 90%. Patient was given a breathing treatment and O2 saturation improved to 100%. Patient stated good improvement in her chest pain symptoms. Patient was mildly tachypneic and hypertensive at arrival. Chief Complaint: Chest Pain Time Seen by MD: 20:44 Primary Care Provider: APPLE Reviewed Notes: Nurses Notes, Entry Level Chemist Notes Allergies: Coded Allergies: NO KNOWN ALLERGIES (Unverified , 11/08/20) Home Meds Active Scripts Hctz (Hydrochlorothiazide) 25 Mg Tab, 12.5 MG PO DAILY for 30 Days, #15 TAB Prov:SHEKHAR GOLDSTEIN RESIDENT 10/19/24 Losartan Potassium (Losartan Potassium) 25 Mg Tab, 25 MG PO DAILY for 30 Days, #30 TAB Prov:SHEKHAR GOLDSTEIN RESIDENT 10/19/24 Methocarbamol (Methocarbamol) 750 Mg Tab, 750 MG PO QHSP PRN, #20 TAB Prov:ROBYN NICHOLS 05/16/22 Ibuprofen (Ibuprofen) 800 Mg Tab, 1 TAB PO TID, #30 TAB Prov:ROBYN NICHOLS PA 05/16/22 Reported Medications Brivaracetam (Briviact) 50 Mg Tab, 50 MG PO DAILY, TAB 10/18/24 Hydrochlorothiazide W/Triamter (Triamterene/Hydrochloroth) 1 Cap Cap, 1 CAP PO DAILY, CAP 10/18/24 Lansoprazole (Lansoprazole) 30 Mg Cap, 1 CAP PO DAILY, #30 CAP 5 Refills 10/18/24 Atorvastatin Calcium (Lipitor) 10 Mg Tab, 1 TAB PO QPM, #90 TAB 1 Refill 10/18/24 Gabapentin (Gabapentin) 300 Mg Cap, 300 MG PO TID for 30 Days, MG 10/18/24 Eslicarbazepine Acetate (Aptiom) 800 Mg Tab, 800 MG PO DAILY, TAB 10/18/24 Etodolac (Lodine) 400 Mg Tab, 400 MG PO BID PRN for PAIN SCALE 1 THRU 6, TAB 10/18/24 Potassium Chloride (POTASSIUM CHLORIDE CR) 10 Meq Tb, 16 MEQ PO DAILY, TAB 10/18/24 Information Source: Patient, Emergency Med Personnel Mode of Arrival: Ambulatory Severity: Moderate Timing: Hours Duration: Hours Prehospital treatment: Treatment Location: Substernal Quality: Crushing, Tightness Onset: At Rest Cardiac Risk Factors: HTN PE Risk Factors: None History of: Similar pain in past Associated Signs and Symptoms: SOB Past Medical History PAST MEDICAL HISTORY: Arthritis, COPD, HTN Surgical History: Denies all surgeries GIS INSTRUCTOR History: No Pertinent GIS INSTRUCTOR History Family History Family History: Reviewed,noncontributory to illness Social History Smoker: Cigarettes Alcohol: Denies ETOH Use Drugs: Denies Drug Use Lives In: Home Constitutional: denies: chills, diaphoresis, fatigue, fever, malaise, sweats, weakness, others EENTM: denies: blurred vision, double vision, ear bleeding, ear discharge, ear drainage, ear pain, ear ringing, eye pain, eye redness, hearing loss, mouth pain, mouth swelling, nasal discharge, nose bleeding, nose congestion, nose pain, photophobia, tearing, throat pain, throat swelling, voice changes, others Respiratory: reports: SOB at rest; denies: cough, hemoptysis, orthopnea, shortness of breath, SOB with excertion, stridor, wheezing, others Cardiovascular: reports: chest pain; denies: dizzy spells, diaphoresis, Dyspnea on exertion, edema, irregular heart beat, left arm pain, lightheadedness, palpitations, PND, syncope, others Gastrointestinal: denies: abdomen distended, abdominal pain, blood streaked bowels, constipated, diarrhea, dysphagia, difficulty swallowing, hematemesis, melena, nausea, poor appetite, poor fluid intake, rectal bleeding, rectal pain, vomiting, others Genitourinary: denies: abnormal vagina bleeding, burning, dyspareunia, dysuria, flank pain, frequency, hematuria, incontinence, pain, , vagina discharge, urgency, others Neurological: denies: dizziness, fainting, headache, left sided numbness, left sided weakness, numbness, paresthesia, pre-existing deficit, right sided numbness, right sided weakness, seizure, speech problems, tingling, tremors, weakness, others Musculoskeletal: denies: back pain, gout, joint pain, joint swelling, muscle pain, muscle stiffness, neck pain, others Integumetry: denies: bruises, change in color, change in hair/nails, dryness, laceration, lesions, lumps, rash, wounds, others Allergic/Immunocompromised: denies: Difficulty Healing, Frequent Infections, Hives, Itching, others Hematologic/Lymphatic: denies: anemia, blood clots, easy bleeding, easy bruising, swollen glands, others Endocrine: denies: excessive hunger, excessive sweating, excessive thirst, excessive urination, flushing, intolerance to cold, intolerance to heat, unexplained weight gain, unexplained weight loss, others Psychiatric: denies: anxiety, bipolar disorder, depression, hopeless, panic disorder, schizophrenia, sleepless, suicidal, others Physical Exam General Appearance: Mild Distress (Distress due to some remaining chest pain concerns.), Normal HEENT: Normal ENT Inspection, Pharynx Normal, TMs Normal Neck: Full Range of Motion, Non-Tender, Normal, Normal Inspection Respiratory: Chest Non-Tender, Lungs Clear, No Accessory Muscle Use, No Respiratory Distress, Normal Breath Sounds, Other (Very mild wheezing appreciated in right middle lobe.) Cardiovascular: No Edema, No JVD, No Murmur, No Gallop, Normal Peripheral Pulses, Regular Rate/Rhythm Breast Exam: Deferred Gastrointestinal: No Organomegaly, Non Tender, No Pulsatile Mass, Normal Bowel Sounds, Soft Genitalia: Deferred Pelvic: Deferred Rectal: Deferred Extremities: No calf tenderness, Normal inspection, Non-tender Neurologic: Alert Cerebellar Function: NOT DONE Reflexes: NOT DONE Skin: Dry, Normal Color, Warm Lymphatic: No Adenopathy Was a procedure done? Was a procedure done?: No CP Differential Dx Differential Diagnosis: A-fib, Anxiety / Panic Attack, Atrial Dysrhythmia, AV Block 1st Degree, SC Differential Diagnosis: CHF Differential Diagnosis: Angina, Pneumonia, Other (COPD exacerbation) X-Ray, Labs, Meds, VS Vital Signs Date Time Temp Pulse Resp B/P (MAP) Pulse Ox O2 Delivery O2 Flow Rate FiO2 01/22/25 23:06 159/103 01/22/25 22:18 98.3 83 18 159/103 (121) 96 98.3 01/22/25 20:39 98 01/22/25 20:25 99.8 68 22 133/69 100 99.8 01/22/25 20:25 98.5 99 18 138/90 96 98.5 Lab Test 01/22/25 22:06 01/22/25 21:15 Range/Units Troponin I High Sensitivity 5 5 </=34 ng/L White Blood Count 6.1 4.4-10.8 10^3/uL Red Blood Count 4.78 4.0-5.20 10^6/uL Hemoglobin 14.2 12.2-16.2 g/dL Hematocrit 41.6 36.0-46.0 % Mean Corpuscular Volume 87.0 80.0-100.0 fL Mean Corpuscular Hemoglobin 29.7 28.0-32.0 pg Mean Corpuscular Hemoglobin Concent 34.1 32.0-36.0 g/dL Red Cell Distribution Width 14.3 11.8-14.3 % Platelet Count 190 140-450 10^3/uL Mean Platelet Volume 8.5 6.9-10.8 fL Neutrophils (%) (Auto) 51.4 37.0-80.0 % Lymphocytes (%) (Auto) 33.3 10.0-50.0 % Monocytes (%) (Auto) 8.9 0.0-12.0 % Eosinophils (%) (Auto) 5.0 0.0-7.0 % Basophils (%) (Auto) 1.4 0.0-2.0 % Neutrophils # (Auto) 3.1 1.6-8.6 10 ^3/uL Lymphocytes # (Auto) 2.0 0.4-5.4 10 ^3/uL Monocytes # (Auto) 0.5 0-1.3 10 ^3/uL Eosinophils # (Auto) 0.3 0-0.8 10 ^3/uL Basophils # (Auto) 0.1 0-0.2 10 ^3/uL Nucleated Red Blood Cells 0.1 % Sodium Level 143 136-145 mmol/L Potassium Level 3.7 3.5-5.1 mmol/L Chloride Level 105 98-107 mmol/L Carbon Dioxide Level 29 20-31 mmol/L Anion Gap 9 5-15 Blood Urea Nitrogen 13 9-23 mg/dL Creatinine 0.84 0.550-1.02 mg/dL Glomerular Filtration Rate Calc 77 >90 mL/min BUN/Creatinine Ratio 15.5 10.0-20.0 Serum Glucose 100 74-106 mg/dL Calcium Level 9.4 8.7-10.4 mg/dL Total Bilirubin 0.2 0.2-1.0 mg/dL Aspartate Amino Transferase (AST) 28 13-40 U/L Alanine Aminotransferase (ALT) 16 7-40 U/L Alkaline Phosphatase 98 46-116 U/L B-Type Natriuretic Peptide 12.37 0-100 pg/mL Total Protein 7.6 5.7-8.2 g/dL Albumin 4.5 3.2-4.8 g/dL Current Medications Medications (Trade) Dose Ordered Sig/Julianne Route Start Time Stop Time Status Last Admin Aspirin 81 mg ONCE ONCE PO 01/22/25 21:00 01/22/25 21:01 DC 01/22/25 22:54 Clonidine HCl (Catapres Tablet) 0.2 mg ONCE ONCE PO 01/22/25 23:00 01/22/25 23:01 DC 01/22/25 23:06 X-Ray, Labs, Meds, VS Comment All studies performed the ED were evaluated by me personally. Serum studies were unremarkable for any systemic concerns. EKG revealed a sinus rhythm with a rate of 89. Left axis deviation was noted as well as probable fold anterior septal infarct. [place] interval 182 and QT interval of 341. Chest x-ray was unremarkable for any acute intrapulmonary concerns or consolidation. It appears the patient was having a COPD exacerbation. Patient's blood pressure was treated while at the facility and was returning into an acceptable zone at time of discharge. Time of 1ST Reevaluation: 00:33 Reevaluation 1ST: Improved Consultation: PCP Patient Education/Counseling: Diagnosis, Treatment Family Education/Counseling: Diagnosis, Treatment SEPSIS Sepsis Screen Date sepsis recognized/suspect: Jan 22, 2025 Time Sepsis recognized/suspect: 2028 Recent Procedure: No On Antibiotic Therapy: No Respiratory Rate >20: No Heart Rate >90: No Temp<36 C (96.8 F) or >38.3 C: No SBP <90 or MAP <65 mmHG: No New Acute Mental Status Change: No Is the patient on CPAP, BIPAP,: No Physician Orders Chest Portable (01/22/25 20:58) Urinalysis (01/22/25 20:58) Electrocardigram (01/22/25 20:58) Vital Signs Date Time Temp Pulse Resp B/P (MAP) Pulse Ox O2 Delivery O2 Flow Rate FiO2 01/22/25 23:06 159/103 01/22/25 22:18 98.3 83 18 159/103 (121) 96 98.3 01/22/25 20:39 98 01/22/25 20: 99.8 68 22 133/69 100 99.8 01/22/25 20:25 98.5 99 18 138/90 96 98.5 Laboratory Tests Test 01/22/25 21:15 White Blood Count 6.1 10^3/uL (4.4-10.8) Medications Medications Dose Ordered Sig/Julianne Route Start Time Stop Time Status Last Admin Dose Admin Aspirin 81 mg ONCE ONCE PO 01/22/25 21:00 01/22/25 21:01 DC 01/22/25 22:54 Clonidine HCl 0.2 mg ONCE ONCE PO 01/22/25 23:00 01/22/25 23:01 DC 01/22/25 23:06 Departure 1 Departure Time of Disposition: 00:33 Impression: Primary Impression: COPD exacerbation Additional Impression: Hypertension Disposition: HOME / SELF CARE / HOMELESS Condition: Stable Additional Instructions: Advised patient follow up with the primary care provider for discussions related to today's visit as well as improved management of her COPD and hypertensive concerns. Discharged With: Self, Relative Critical Care Note Critical Care Time?: No Stability Stability form required: No Heart Score Heart Score: Heart Score Response (Comments) Value History Slightly Suspicious 0 EKG Repolarization Disturb 1 Age >65 2 Risk Factors 1 or 2 risk factors 1 Troponin Normal limit 0 Total 4 MARTÍN MUKHERJEE PAC Jan 23, 2025 00:34
[2025-01-23 01:13] VITALS: BP 131/87; PULSE 83; RESP 16; TEMP 98.1; O2SAT 99
--- NOTE | 2025-01-23 11:04 | ECG ---
[facility] Test Date: 2025-01-22 Test Time: 20:35:03 Pat Name: SIDNEY MARVIN Department: ED Room: Gender: F Steward/Stewardess Second: : 1960 Requested By: MARTÍN MUKHERJEE Order Number: [id number] Reading MD: Kirill Villar Measurements Intervals [place] Rate: 98 P: 52 MA: 185 QRS: -40 QRSD: 97 T: 5 QT: 346 QTc: 442 Interpretive Statements Sinus rhythm Probable left atrial enlargement Left axis deviation Probable anteroseptal infarct, old Electronically Signed On 01-25-2025 15:07:29 PDT by Kirill Villar Please click the below link to view image of tracing.
--- NOTE | 2025-01-26 09:47 | ECG ---
[facility] Test Date: 2025-01-22 Test Time: 23:26:17 Pat Name: SIDNEY MARVIN Department: ED Room: Gender: F Sharepoint Net Developer: jocelyn : 1960 Requested By: MARTÍN MUKHERJEE Order Number: [id number] Reading MD: Measurements Intervals [place] Rate: 82 P: 48 MD: 179 QRS: -45 QRSD: 95 T: 7 QT: 357 QTc: 417 Interpretive Statements Sinus rhythm Probable left atrial enlargement Left axis deviation Probable anteroseptal infarct, old Please click the below link to view image of tracing.
--- NOTE | 2025-01-27 09:18 | ECG ---
[facility] Test Date: 2025-01-22 Test Time: 21:33:21 Pat Name: SIDNEY MARVIN Department: ED Room: Gender: F Hoop Bender Tank: IRINA : 1960 Requested By: MARTÍN MUKHERJEE Order Number: [id number] Reading MD: Measurements Intervals [place] Rate: 89 P: 40 IN: 182 QRS: -44 QRSD: 95 T: 4 QT: 341 QTc: 415 Interpretive Statements Sinus rhythm Left axis deviation Probable anteroseptal infarct, old Please click the below link to view image of tracing.
== END 2025-01-23 01:17 | disposition home or self-care (01) ==
LOC: ER 20:19
DX: J44.1 Chronic obstructive pulmonary disease with (acute) exacerbation (principal); R07.9 Chest pain, unspecified; I10 Essential (primary) hypertension; F17.210 Nicotine dependence, cigarettes, uncomplicated; M19.90 Unspecified osteoarthritis, unspecified site; Z79.899 Other long term (current) drug therapy
CPT/HCPCS: 36415; 71045; 80053; 83880; 84484; 85025; 93005